=== PATIENT | female | born 1960 | race Caucasian/White ===

== ENCOUNTER → 2023-07-31 09:15 | Outpatient (CLI) | payer OTHER, SELFPAY | PROVIDERS: PCP Nurse Practitioner; Visit Provider Nurse Practitioner | DX: R30.0 Dysuria (principal) | CPT/HCPCS: 87086 ==

== ENCOUNTER 2023-09-19 11:16 | Outpatient (CLI) | payer OTHER, SELFPAY ==
[2023-09-19 19:47] LABS: Basophils # 0.1 K/mm3 (0-0.2); Eosinophils # 0.1 K/mm3 (0.0-0.4); Eosinophils % 2.3 % (0.1-12.0); Hematocrit 47.5 % (37.0-47.0); Hemoglobin 15.9 g/dL (12.2-16.2); Lymphocytes # 1.3 K/mm3 (0.7-4.5); Lymphocytes % 21.2 % (10-50); Mean Corpuscular HGB Conc 33.5 g/dL (31.8-35.4); Mean Corpuscular Hemoglobin 29.5 pg (27.0-31.2); Mean Corpuscular Volume 88.1 fl (81-99); Mean Platelet Volume 10.5 fl (7.4-10.4); Monocytes # 0.3 K/mm3 (0.1-1.0); Monocytes % 5.5 % (1.7-9.3); Neutrophils # 4.4 K/mm3 (1.8-7.8); Platelet Count 219 K/mm3 (142-424); Red Blood Count 5.39 M/mm3 (4.20-5.40); Red Cell Distribution Width 13.9 % (11.5-17.5); White Blood Count 6.2 K/mm3 (4.8-10.8)
[2023-09-19 20:00] LABS: Alanine Aminotransferase 17 U/L (12-78); Alkaline Phosphatase 76 U/L (38-126); Anion Gap 10.4 mEq/L (5-15); Aspartate Amino Transferase 29 U/L (14-36); Bilirubin,Total 0.7 mg/dl (0.2-1.3); Blood Urea Nitrogen 10 mg/dl (7-17); Calcium 8.6 mg/dl (8.4-10.2); Carbon Dioxide 30 mmol/L (22.0-30.0); Chloride 100 mmol/L (98-107); Estimated Glomerular Filt Rate 50 ml/min (>60); GFR (African American) 61 ML/MIN (>60); Globulin 3.9 g/dL (1.3-3.2); Glucose 111 mg/dl (74-100); Potassium 3.4 mmoL/L (3.5-5.1); Sodium 137 mmol/L (136-145); Total Protein,Serum 7.9 g/dl (6.3-8.2)
[2023-09-19 20:29] LABS: Thyroid Stimulating Hormone 1.56 uIU/mL (0.465-4.68)
== END 2023-09-19 23:59 ==
LOC: LAB.DROPOF 09-20 10:35
PROVIDERS: PCP Family Medicine; Visit Provider Family Medicine
DX: R06.02 Shortness of breath (principal); Z79.899 Other long term (current) drug therapy
CPT/HCPCS: 80053; 84443; 85025

== ENCOUNTER 2024-06-01 15:40 | Outpatient (CLI) | payer OTHER, SELFPAY ==
[2024-06-01 19:40] LABS: Thyroid Stimulating Hormone 1.14 uIU/mL (0.465-4.68)
[2024-06-13 20:09] LABS: 1,25 Dihydroxy Vitamin D 35 pg/mL (.); 1,25-Dihydroxy, Vitamin D-2 23 pg/mL (.); 1,25-Dihydroxy, Vitamin D-3 12 pg/mL (.)
== END 2024-06-01 23:59 | disposition home or self-care (01) ==
LOC: LAB.DROPOF 06-02 10:59
PROVIDERS: PCP Family Medicine; Visit Provider Family Medicine
DX: J44.9 Chronic obstructive pulmonary disease, unspecified (principal)
CPT/HCPCS: 82652; 84443

== ENCOUNTER 2025-08-26 16:15 | Outpatient (CLI) | payer OTHER, SELFPAY ==
[2025-08-26 18:43] LABS: Hematocrit 48.9 % (37.0-47.0); Hemoglobin 16.3 g/dL (12.2-16.2); Immature Granulocytes % 0.5 %; Mean Corpuscular HGB Conc 33.3 g/dL (31.8-35.4); Mean Corpuscular Hemoglobin 29.6 pg (27.0-31.2); Mean Corpuscular Volume 88.9 fl (81-99); Nucleated Red Blood Cells % 0 %; Platelet Count 185 K/mm3 (142-424); Red Blood Count 5.50 M/mm3 (4.20-5.40); Red Cell Distribution Width-SD 45.4 fL; White Blood Count 12.1 K/mm3 (4.8-10.8)
[2025-08-26 18:58] LABS: Albumin Level 4.6 g/dl (3.5-5.0); Chloride 104 mmol/L (98-107); Sodium 141 mmol/L (136-145)
[2025-08-26 18:59] LABS: Potassium 4.5 mmoL/L (3.5-5.1)
[2025-08-26 19:01] LABS: Alanine Aminotransferase 15 U/L (12-78); Albumin/Globulin Ratio 1.1 (1.1-1.8); Alkaline Phosphatase 78 U/L (38-126); Anion Gap 18.5 mEq/L (5-15); Aspartate Amino Transferase 22 U/L (14-36); Bilirubin,Total 0.9 mg/dl (0.2-1.3); Blood Urea Nitrogen 22 mg/dl (7-17); Calcium 9.4 mg/dl (8.4-10.2); Carbon Dioxide 23 mmol/L (22.0-30.0); Cholesterol 173 mg/dl (140-200); Creatinine,Serum 1.00 mg/dl (0.52-1.04); Estimated Glomerular Filt Rate 56 ml/min (>60); GFR (African American) 68 ML/MIN (>60); Globulin 4.1 g/dL (1.3-3.2); Glucose 103 mg/dl (74-100); Total Protein,Serum 8.7 g/dl (6.3-8.2); Triglycerides 176 mg/dl (30-150)
[2025-08-26 19:02] LABS: HDL Cholesterol 47 mg/dl (40-60)
[2025-08-26 19:33] LABS: Thyroid Stimulating Hormone 1.51 uIU/mL (0.465-4.68)
== END 2025-08-26 23:59 | disposition home or self-care (01) ==
LOC: LAB.DROPOF 08-27 12:32
PROVIDERS: PCP Family Medicine; Visit Provider Nurse Practitioner Family
DX: M81.0 Age-related osteoporosis without current pathological fracture (principal); J44.9 Chronic obstructive pulmonary disease, unspecified; K21.9 Gastro-esophageal reflux disease without esophagitis
CPT/HCPCS: 80053; 80061; 84443; 85025